=== PATIENT | male | born 1990 | race Caucasian/White ===

== ENCOUNTER 2020-09-06 14:06 | Emergency (ER) | payer OTHER ==
[~2020-09-06] VITALS: Ht 167.6 cm; Wt 97.1 kg
[2020-09-06 14:35] VITALS: Ht 167.6 cm; Wt 97.1 kg
[2020-09-06 18:49] VITALS: BP 136/93
== END 2020-09-06 18:49 | disposition home or self-care (01) ==
LOC: ED 14:06
DX: R06.4 Hyperventilation (principal); F41.0 Panic disorder [episodic paroxysmal anxiety]; F17.210 Nicotine dependence, cigarettes, uncomplicated; F12.10 Cannabis abuse, uncomplicated
CPT/HCPCS: 99406